=== PATIENT | female | born 1995 | race Hispanic/Latino ===

== ENCOUNTER 2019-08-17 07:26 | Emergency (ER) | payer OTHER ==
[2019-08-17] MEDS ORDERED: Acetaminophen 500 MG TAB ONE (08:21)
--- NOTE | 2019-08-17 08:31 | CT ---
EXAM: CT neck with contrast HISTORY: Left ear pain and swelling with fever COMPARISON: None TECHNIQUE: Multiple contiguous axial images were obtained and a CT of the neck with contrast. Sagitta l and coronal reformats were performed. FINDINGS: Stranding changes are seen surrounding the left ear. There appears to be thickening of the cartilage of the ear and external auditory canal. Mucosa of the external auditory canal is also thickened. No focal fluid collection is seen. No mucosal abnormality is seen in the nasopharynx, oropharynx, hypopharynx, or subglottic regions. The parapharyngeal spaces are symmetric. There are reactive mildly enlarged left cervical lymph nodes. The salivary glands are symmetric without focal abnormality. The thyroid is unremarkable. No osseous abnormality is seen in the cervical spine. The visualized intracranial structures are unremarkable. The lung apices are unremarkable. IMPRESSION: Left otitis externa.
[2019-08-17] MEDS ORDERED: Iopamidol-370 76% 500 ML 1 ML ONE (09:54)
== END 2019-08-17 09:20 | disposition home or self-care (01) ==
LOC: ERS 07:26
DX: O99.89 Other specified diseases and conditions complicating pregnancy, childbirth and the puerperium (principal); H60.92 Unspecified otitis externa, left ear; Z79.891 Long term (current) use of opiate analgesic; Z79.899 Other long term (current) drug therapy
CPT/HCPCS: 69210; 70491; Q9967

== ENCOUNTER 2024-08-02 06:26 | Day surgery (SDC) | payer BC ==
[2024-07-29 10:08] VITALS: BMI 32.9
[2024-08-02] MEDS ORDERED: Midazolam HCl 2 mg/2 ml Vial ONE (08:01)
[2024-08-02] MEDS ORDERED: Dexamethasone 20 MG/5 ML VIAL ONE (08:31)
[2024-08-02] MEDS ORDERED: HYDROmorphone 2 MG/ML VIAL ONE (08:31)
[2024-08-02] MEDS ORDERED: fentaNYL 50 mcg/mL 1 mL Vial ONE ×3 (08:31→12:46)
[2024-08-02] MEDS ORDERED: Ondansetron PF 4 MG/2 ML Vial ONE (08:31)
[2024-08-02] MEDS ORDERED: PROPOFOL 20 ML ONE (08:31)
[2024-08-02] MEDS ORDERED: Lidocaine 1% PF 5 ML VIAL ONE (08:31)
[2024-08-02] MEDS ORDERED: Ketorolac Tromethamine 30 MG (1 mL) VIAL ONE ×2 (08:33→11:20)
[2024-08-02] MEDS ORDERED: KETAMINE 100 MG/ML (5ML VIAL) ONE (08:35)
[2024-08-02] MEDS ORDERED: CEFAZOLIN 2 GM VIAL ONE (08:39)
[2024-08-02] MEDS ORDERED: Glycopyrrolate 0.2 MG/ML 5 ML SYRINGE ONE (09:01)
[2024-08-02] MEDS ORDERED: PHENYLEPHRINE-NS 100 MCG/ML 10 ML SYRINGE ONE ×4 (09:01→11:07)
[2024-08-02] MEDS ORDERED: Betamet Acet/Betamet Na Ph 30 MG/5 ML VIAL ONE (10:22)
[2024-08-02] MEDS ORDERED: HYDROcodone/Acetaminophen 5/325 mg Tablet ONE (15:01)
== END 2024-08-02 15:20 | disposition home or self-care (01) ==
LOC: SDC 06:26
PROVIDERS: ATTEND Orthopaedic Surgery Hand Surgery
PROC: 01S60ZZ Reposition Radial Nerve, Open Approach (ICD-10-PCS; principal; 2024-08-02)
PROC: 0LB60ZZ Excision of Left Lower Arm and Wrist Tendon, Open Approach (ICD-10-PCS; principal; 2024-08-02)
DX: G56.02 Carpal tunnel syndrome, left upper limb (principal); G56.32 Lesion of radial nerve, left upper limb; G56.82 Other specified mononeuropathies of left upper limb; M67.432 Ganglion, left wrist; Z90.49 Acquired absence of other specified parts of digestive tract
CPT/HCPCS: 88304; J0702; J1100; J1171; J1885; J2250; J2405; J2704; J3010

== ENCOUNTER 2025-07-28 09:26 | Emergency (ER) | payer BC ==
[2025-07-28 09:55] LABS: Pregnancy Test - Urine (BHCG) Negative (Negative); Pregu Control Background? CLEAR/WHITE (CLR/WHITE); Pregu Control Bar Appear? YES (CONTROL BAR)
[2025-07-28 09:58] LABS: Bacteria/HPF None Seen HPF (None Seen); CAUTI Indications for Culture Acute Hematuria; Glucose, Urine (Dipstick) Normal (Negative); Leukocyte 500 Leu/uL (Negative); Protein, Urine (Dipstick) Negative (Neg-Trace); RBC/HPF 0-3 HPF (0-3); Specific Gravity, Urine 1.005 (1.002-1.036); WBC/HPF Greater than 50 HPF (0-3)
[2025-07-28 10:00] LABS: Urine Culture Reflex Yes Yes
[2025-07-28 10:31] LABS: #Basophils Less than 0.03 10x3/uL (0.0-0.2); #Eosinophils 0.08 10x3/uL (0.0-0.7); #Monocytes 0.45 10x3/uL (0.11-0.59); #Neutrophils 8.01 10x3/uL (1.40-6.50); %Basophils 0.2 % (0.0-1.0); %Eosinophils 0.7 % (0.0-10.0); %Lymphocytes 19.6 % (21.0-51.0); %Monocytes 4.2 % (0.0-10.0); %Neutrophils 74.9 % (42.0-75.0); Hematocrit 41.2 % (36.0-47.0); Hemoglobin 13.6 g/dL (12.0-16.0); Mean Corpuscular Hemoglobin 28.9 pg (27.0-31.0); Mean Corpuscular Volume 87.7 fL (78.0-98.0); Platelet Count 297 10x3/uL (130-400); Red Blood Cell (RBC) Count 4.70 mill/uL (4.20-5.40); White Blood Cell (WBC) Count 10.69 10x3/uL (4.8-10.8)
[2025-07-28 10:47] LABS: ALT (SGPT) 34 U/L (Less than 34); AST (SGOT) 31 U/L (11-34); Albumin 4.2 g/dL (3.1-4.5); Alkaline Phosphatase 95 U/L (40-110); Anion Gap 10 mmol/L (10-20); BUN (Urea Nitrogen) 5 mg/dL (7.0-18.7); Bilirubin, Total 0.3 mg/dL (0.3-1.2); Calc. Creatinine Clearance 0 mL/min (70-130); Calcium 9.5 mg/dL (7.8-10.44); Carbon Dioxide 29 mmol/L (22-29); Chloride 105 mmol/L (98-107); Globulin 3.1 g/dL (2.4-3.5); Glucose 79 mg/dL (70-105); Potassium 4.1 mmol/L (3.5-5.1); Sodium 140 mmol/L (136-145)
[2025-07-28] MEDS ORDERED: Acetaminophen 500 MG TAB ONE (12:50)
== END 2025-07-28 13:04 | disposition home or self-care (01) ==
LOC: ERS 09:26
DX: N10 Acute pyelonephritis (principal); N20.0 Calculus of kidney; Z55.6 Problems related to health literacy
CPT/HCPCS: 74176; 80053; 81001; 81025; 83690; 85025; 87086; 96374